=== PATIENT | male | born 1945 | race Caucasian/White ===

== ENCOUNTER 2022-11-19 04:46 | Emergency (ER) | payer OTHER ==
[2022-11-19 07:32] LABS: Specific Gravity 1.021 (1.005-1.030); Urine Bacteria 20-50 /HPF (<20); Urine Bilirubin NEGATIVE (Negative); Urine Blood 1+ (Negative); Urine Clarity Extremely Turbid (Clear); Urine Color Yellow (Yellow); Urine Glucose NEGATIVE (Negative); Urine Mucus Slight /HPF (None Seen); Urine Protein 1+ (Negative); Urine RBC >50 /HPF (None Seen); Urine Urobilinogen 1+ (Normal); Urine pH 7.5 (5.0-7.0)
[2022-11-19 08:40] LABS: Absolute Lymphocytes (CBC) 1.4 K/uL (0.7-4.9); Lymphocytes % 23.7 % (15.3-44.8); MCV 85.2 fL (80-100); Platelets 191 thou/uL (152-406); RBC Red Blood Cell Count 4.11 M/uL (4.33-5.43)
[2022-11-19 08:41] LABS: Protime INR 1.05
[2022-11-19 08:52] LABS: Albumin 3.1 g/dL (3.4-5.0); Bilirubin Total 0.2 mg/dL (0.2-1.0); Potassium 3.6 mEq/L (3.5-5.1)
--- NOTE | 2022-11-19 09:00 | ER ---
Nurse's Notes [facility] Name: Aly Jimenez Age: 77 yrs Sex: Male : 1945 Arrival Date: 11/19/2022 Time: 04:46 Bed 17 Private MD: Diagnosis: UTI/ Urinary tract infection, site not specified Presentation: 11/19 04:48 Chief complaint: EMS states: called out to [facility] due to pt being "aggressive jw7 towards and swinging at staff". Coronavirus screen: At this time, the client does not indicate any symptoms associated with coronavirus-19. Ebola Screen: No symptoms or risks identified at this time. Initial Sepsis Screen: Does the patient meet any 2 criteria? No. Patient's initial sepsis screen is negative. Does the patient have a suspected source of infection? No. Patient's initial sepsis screen is negative. Risk Assessment: Do you want to hurt yourself or someone else? Patient reports no desire to harm self or others. Onset of symptoms was November 19, 2022. 04:48 Method Of Arrival: EMS: [facility] jw7 04:48 Acuity: PRANEETH 4 jw7 Triage Assessment: 04:48 General: Appears in no apparent distress. comfortable, Behavior is calm, cooperative. jw7 Pain: Denies pain. EENT: No deficits noted. No signs and/or symptoms were reported regarding the EENT system. Neuro: No deficits noted. Rossi Agitation-Sedation Scale (RASS): 0 - Alert and Calm Level of Consciousness is awake, alert, obeys commands, confused, Oriented to person, place, Speech is normal. Cardiovascular: No deficits noted. Capillary refill < 3 seconds Clubbing of nail beds is absent JVD is absent Patient's skin is warm and dry. Respiratory: No deficits noted. Airway is patent Trachea midline Respiratory effort is even, unlabored, Respiratory pattern is regular, symmetrical. GI: No deficits noted. No signs and/or symptoms were reported involving the gastrointestinal system. Abdomen is round non-distended. : No deficits noted. No signs and/or symptoms were reported regarding the genitourinary system. Derm: No deficits noted. No signs and/or symptoms reported regarding the dermatologic system. Skin is intact, is healthy with good turgor, Skin is dry, Skin is normal, Skin temperature is warm. Musculoskeletal: No deficits noted. No signs and/or symptoms reported regarding the musculoskeletal system. Circulation, motion, and sensation intact. Range of motion: intact in all extremities. Historical: - Allergies: 05:00 Sulfa (Sulfonamide Antibiotics); jw7 - Home Meds: 05:00 Unable to obtain [Active]; jw7 - PMHx: 05:00 Hypertensive disorder; Diabetes mellitus; ankylosing spondilytis; BPH; HLD; jw7 05:00 Hypothyroidism; jw7 - PSHx: 05:00 Unable to Obtain; jw7 - Immunization history:: Adult Immunizations unknown, unknown Last tetanus immunization: unknown, Flu vaccine status is unknown. - Social history:: Smoking status: Patient denies any tobacco usage or history of. Screenin:52 [facility] ED Fall Risk Assessment (Adult) History of falling in the last 3 months, jw7 including since admission No falls in past 3 months (0 pts) Confusion or Disorientation Yes (5 pts) Intoxicated or Sedated No (0 pts) Impaired Gait Yes (1 pt) Mobility Assist Device Used No (0 pt) Altered Elimination No (0 pt) Score/Fall Risk Level 3 or more points = High Risk Oriented to surroundings, Maintained a safe environment, Educated pt \\T\\ family on fall prevention, incl call for assistance when getting out of bed, Hourly rounding (assess needs \\T\\ fall precautionary measures) done. Abuse screen: Denies threats or abuse. Denies injuries from another. Nutritional screening: No deficits noted. Tuberculosis screening: No symptoms or risk factors identified. Assessment: 05:15 General: see triage assessment. jw7 06:20 Reassessment: Patient appears in no apparent distress at this time. No changes from jw7 previously documented assessment. Patient and/or family updated on plan of care and expected duration. Pain level reassessed. Patient is alert, oriented x 3, equal unlabored respirations, skin warm/dry/pink. 08:30 Reassessment: Patient appears in no apparent distress at this time. Patient and/or ph family updated on plan of care and expected duration. Pain level reassessed. Pt asleep w/ unlabored respirations, awakens easily and was cooperative w/ blood draw and EKG. 10:29 Reassessment: Patient appears in no apparent distress at this time. Patient and/or ph family updated on plan of care and expected duration. Pain level reassessed. Pt d/c w/ care home staff. Vital Signs: 04:48 BP 138 / 72; Pulse 76; Resp 16 S; Pulse Ox 100% on R/A; jw7 05:30 BP 128 / 66; Pulse 75; Resp 16 S; Pulse Ox 100% on R/A; jw7 06:00 BP 130 / 81; Pulse 64; Resp 17 S; Pulse Ox 99% on R/A; jw7 07:30 BP 129 / 78; Pulse 62; Resp 18; Pulse Ox 98% on R/A; ph 09:00 BP 133 / 67; Pulse 68; Resp 18; Pulse Ox 99% on R/A; ph 10:30 BP 138 / 78; Pulse 71; Resp 18; Temp 97.6; Pulse Ox 100% on R/A; ph ED Course: 04:47 Patient arrived in ED. as6 04:48 Isadora Lama RN is Primary Nurse. jw7 04:48 Arm band placed on. jw7 04:51 Triage completed. jw7 04:52 Patient has correct armband on for positive identification. Bed in low position. Call jw7 light in reach. Side rails up X2. 05:16 Noman Donohue MD is Attending Physician. kdr 07:41 Attending Physician role handed off by Noman Donohue MD rn 07:41 Max Crawley MD is Attending Physician. rn 08:22 Inserted saline lock: 22 gauge in right hand, using aseptic technique. aw1 08:30 EKG done, by ED staff. aw1 09:53 IV discontinued, intact, bleeding controlled, No redness/swelling at site. Pressure aw1 dressing applied. 10:30 No provider procedures requiring assistance completed. ph 10:31 IV discontinued, intact, bleeding controlled, No redness/swelling at site. Pressure ph dressing applied. Administered Medications: 09:24 Drug: Rocephin IV 1 grams IV at calculated rate once; Given slow IV push per pharmacy ph instructions Route: IV; Rate: calculated rate; Site: right hand; 09:45 Follow up: Response: No adverse reaction; IV Status: Completed infusion ph Medication: 10:30 VIS not applicable for this client. ph Outcome: 09:00 Discharge ordered by . rn 10:31 Discharged to care home. Report called to Soledad ceron 10:31 Condition: good 10:31 Discharge instructions given to care home, Instructed on discharge instructions, follow up and referral plans. medication usage, Demonstrated understanding of instructions, follow-up care, medications, Prescriptions given X 1, 10:31 Patient left the ED. ph Signatures: Noman Donohue MD MD kdr Nieto, Roman, MD MD rn Hall, Patricia, RN RN Shashank Valle RN RN as6 Isadora Lama RN RN jw7 Therese Piedra aw1 Corrections: (The following items were deleted from the chart) 05:15 04:54 Home Meds: Effexor 150 Oral 150 mg twice a day; jw7 jw7 05:15 04:54 Home Meds: Aricept 5 mg Oral tablet 1 tab Q AM; jw7 jw7 05:15 04:54 Home Meds: Zyprexa 2.5 mg Oral tablet 1 tab Q AM; jw7 jw7 05:15 04:54 Home Meds: Zyprexa 7.5 mg Oral tablet 1 tab Q HS; jw7 jw7 05:15 04:54 Home Meds: Depakote 250 mg Oral tablet, delayed release (enteric coated) 1 tab Q jw7 AM and Q 1400; jw7 05:15 04:54 Home Meds: Depakote 500 mg Oral tablet, delayed release (enteric coated) 1 tab Q jw7 HS; jw7 05:15 04:54 Home Meds: trazodone 100 mg Oral tablet 1 tab every day at bedtime; jw7 jw7 05:23 04:48 Neuro: No deficits noted. Rossi Agitation-Sedation Scale (RASS): 0 - Alert and jw7 Calm jw7
--- NOTE | 2022-11-19 09:00 | EDPHYS ---
Physician Documentation [facility] Name: Aly Jimenez Age: 77 yrs Sex: Male : 1945 Arrival Date: 11/19/2022 Time: 04:46 Bed 17 Private MD: ED Physician Max Crawley HPI: 11/19 05:37 This 77 yrs old Male presents to ER via EMS with complaints of agitation. kdr 05:37 Nursing staff reports that [facility] behavior. Reportedly he was swinging at the nursing staff. PD was called. When they arrived the patient apparently was without any concern from their perspective. EMS arrived shortly thereafter and the [facility] staff reportedly wanted the patient evaluated for psychiatric issues. On my initial evaluation patient is sleeping but arouses and is cooperative. He does not appear agitated in any way.. Onset: The symptoms/episode began/occurred just prior to arrival. Severity of symptoms: At their worst the symptoms were mild moderate just prior to arrival, in the emergency department the symptoms have resolved. It is unknown whether or not the patient has had similar symptoms in the past. The patient was reported to have had a psychiatric evaluation a few weeks ago. The outcome of that was not known. Patient does appear to have some baseline dementia. Historical: - Allergies: 05:00 Sulfa (Sulfonamide Antibiotics); jw7 - Home Meds: 05:00 Unable to obtain [Active]; jw7 - PMHx: 05:00 Hypertensive disorder; Diabetes mellitus; ankylosing spondilytis; BPH; HLD; jw7 05:00 Hypothyroidism; jw7 - PSHx: 05:00 Unable to Obtain; jw7 - Immunization history:: Adult Immunizations unknown, unknown Last tetanus immunization: unknown, Flu vaccine status is unknown. - Social history:: Smoking status: Patient denies any tobacco usage or history of. ROS: 05:37 Constitutional: Negative for fever, chills, and weight loss, Eyes: Negative for injury, kdr pain, redness, and discharge, Cardiovascular: Negative for chest pain, palpitations, and edema, Respiratory: Negative for shortness of breath, cough, wheezing, and pleuritic chest pain, Abdomen/GI: Negative for abdominal pain, nausea, vomiting, diarrhea, and constipation, Skin: Negative for injury, rash, and discoloration, 05:37 Neuro: Negative for headache, numbness, weakness, 05:37 Psych: Negative for auditory hallucinations, visual hallucinations, homicidal ideation, suicidal ideation, Exam: 05:37 Constitutional: This is a well developed, well nourished patient who is awake, alert, kdr and in no acute distress. Chest/axilla: Normal chest wall appearance and motion. Nontender with no deformity. No lesions are appreciated. Cardiovascular: Regular rate and rhythm with a normal S1 and S2. No gallops, murmurs, or rubs. Normal PMI, no JVD. No pulse deficits. Respiratory: Lungs have equal breath sounds bilaterally, clear to auscultation and percussion. No rales, rhonchi or wheezes noted. No increased work of breathing, no retractions or nasal flaring. Abdomen/GI: Soft, non-tender, with normal bowel sounds. No distension or tympany. No guarding or rebound. No evidence of tenderness throughout. Back: No spinal tenderness. No costovertebral tenderness. Full range of motion. Skin: Warm, dry with normal turgor. Normal color with no rashes, no lesions, and no evidence of cellulitis. MS/ Extremity: Pulses equal, no cyanosis. Neurovascular intact. Full, normal range of motion. 05:37 Neuro: Orientation: to person, place, Not oriented to time, situation, Mentation: responsive to voice able to follow commands, confused, sleepy, 05:37 Psych: Behavior/mood is pleasant, cooperative, 08:35 ECG was reviewed by the Attending Physician. rn Vital Signs: 04:48 BP 138 / 72; Pulse 76; Resp 16 S; Pulse Ox 100% on R/A; jw7 05:30 BP 128 / 66; Pulse 75; Resp 16 S; Pulse Ox 100% on R/A; jw7 06:00 BP 130 / 81; Pulse 64; Resp 17 S; Pulse Ox 99% on R/A; jw7 07:30 BP 129 / 78; Pulse 62; Resp 18; Pulse Ox 98% on R/A; ph 09:00 BP 133 / 67; Pulse 68; Resp 18; Pulse Ox 99% on R/A; ph 10:30 BP 138 / 78; Pulse 71; Resp 18; Temp 97.6; Pulse Ox 100% on R/A; ph MDM: 05:37 Data reviewed: vital signs, nurses notes, lab test result(s). kdr 07:41 Patient medically screened. rn 07:51 Differential Diagnosis altered mental status. Counseling: I had a detailed discussion rn with the patient and/or guardian regarding the historical points, exam findings, and any diagnostic results supporting the discharge/admit diagnosis. ED course: Patient signed out to me by Dr. Donohue. Plan was to obtain urine. Nursing report states [facility] at [facility]. Patient with baseline dementia. 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 Patient not oriented to place or time and cannot give much more of a story.. 08:58 Consideration of Admission/Observation Escalation of care including furniture rental consultant/observation considered. Labs unremarkable, WBC normal, lactate normal, normal vitals, will [facility] with [facility] after IV antibiotics here. Care significantly affected by the following chronic conditions: Dementia. Special discussion: I discussed with the patient/guardian in detail that at this point there is no indication for admission to the hospital. It is understood, however, that if the symptoms persist or worsen the patient needs to return immediately for re-evaluation. 09:00 ED course: Patient has not shown any agitation here, calm and answering all questions. rn Following commands. Does not appear to be delirious, only baseline dementia. No indication for emergent admission at this point. Will give IV antibiotics and [facility] to [facility] with [facility].. 11/19 05:20 Order name: Urinalysis w/ reflexes; Complete Time: 07:41 kdr 11/19 07:39 Order name: Urine Culture EDVT 11/19 07:45 Order name: Blood Culture Adult (2) rn 11/19 07:45 Order name: CBC with Diff; Complete Time: 08:58 rn 11/19 07:45 Order name: CMP; Complete Time: 08:58 rn 11/19 07:45 Order name: Lactate w/ 2H reflex if indic.; Complete Time: 08:58 rn 11/19 07:45 Order name: Protime (+inr); Complete Time: 08:58 rn 11/19 07:45 Order name: Ptt, Activated; Complete Time: 08:58 rn 11/19 07:04 Order name: Diet Regular; Complete Time: 07:05 jw7 11/19 07:45 Order name: EKG; Complete Time: 07:45 rn 11/19 07:45 Order name: Accucheck; Complete Time: 08:50 rn 11/19 07:45 Order name: Cardiac monitoring; Complete Time: 08:50 rn 11/19 07:45 Order name: EKG - Nurse/Tech; Complete Time: 08:33 rn 11/19 07:45 Order name: IV Saline Lock - Large Bore; Complete Time: 08:35 rn 11/19 07:45 Order name: Labs collected and sent; Complete Time: 08:35 rn 11/19 07:45 Order name: O2 Per Protocol; Complete Time: 08:50 rn 11/19 07:45 Order name: O2 Sat Monitoring; Complete Time: 08:51 rn 11/19 07:45 Order name: Vital Signs; Complete Time: 08:51 rn EC:35 Rate is 67 beats/min. Rhythm is regular. QRS [place] is Normal. HI interval is normal. QRS rn interval is normal. QT interval is normal. No Q waves. T waves are Normal. No ST changes noted. Clinical impression: NSR w/ Non-specific ST/T Changes. Interpreted by me. Reviewed by me. Administered Medications: 09:24 Drug: Rocephin IV 1 grams IV at calculated rate once; Given slow IV push per pharmacy ph instructions Route: IV; Rate: calculated rate; Site: right hand; 09:45 Follow up: Response: No adverse reaction; IV Status: Completed infusion ph Disposition Summary: 11/19/22 09:00 Discharge Ordered Notes: Location: Home rn Problem: new rn Symptoms: have improved rn Condition: Stable rn Diagnosis - UTI/ Urinary tract infection, site not specified rn Followup: rn - With: Private Physician - When: As needed - Reason: Recheck today's complaints, Re-evaluation by your physician Discharge Instructions: - Discharge Summary Sheet rn - Urinary Tract Infection, Adult rn Forms: - Medication Reconciliation Form rn - Thank You Letter rn - Antibiotic hand ornament maker - Prescription Opioid Use rn - Patient Portal Instructions rn - Leadership Thank You Letter rn Prescriptions: - cefpodoxime 100 mg Oral Tablet - take 2 tablets ORAL route every 12 hours for 10 days take with food; 40 tablet; rn Refills: 0, Product Selection Permitted Signatures: Dispatcher [employer] Noman Cantu MD MD kdr Nieto, Roman, MD MD rn Hall, Patricia, RN RN ph Waits, Jodi RN RN jw7 Corrections: (The following items were deleted from the chart) 05:15 04:54 Home Meds: Effexor 150 Oral 150 mg twice a day; jw7 jw7 05:15 04:54 Home Meds: Aricept 5 mg Oral tablet 1 tab Q AM; jw7 jw7 05:15 04:54 Home Meds: Zyprexa 2.5 mg Oral tablet 1 tab Q AM; jw7 jw7 05:15 04:54 Home Meds: Zyprexa 7.5 mg Oral tablet 1 tab Q HS; jw7 7 05:15 04:54 Home Meds: Depakote 250 mg Oral tablet, delayed release (enteric coated) 1 tab Q jw7 AM and Q 1400; jw7 05:15 04:54 Home Meds: Depakote 500 mg Oral tablet, delayed release (enteric coated) 1 tab Q jw7 HS; jw7 05:15 04:54 Home Meds: trazodone 100 mg Oral tablet 1 tab every day at bedtime; jw7 jw7
[2022-11-19] MEDS ORDERED: CEFTRIAXONE 1000 MG/VIAL ONE (10:57)
[2022-11-19] MEDS ORDERED: NA CHLORIDE 0.9% 50 ML ONE (10:57)
[2022-11-19 10:59] VITALS: BP 138/78; TEMP 97.6; O2SAT 100
--- NOTE | 2022-11-22 12:39 | EKG ---
Test Date: 2022-11-19 Test Time: 08:30:16 Revenue Research Analyst: KENRICK MEASUREMENT RESULTS: Intervals: Rate: 67 VA: 152 QRSD: 148 QT: 418 QTc: 441 [place]: P: 80 VA: 152 QRS: 30 T: 43 INTERPRETIVE STATEMENTS: Normal sinus rhythm Right bundle branch block Abnormal ECG No previous ECG available for comparison Electronically Signed On 11-22-22 12:33:05 CDT by Rohan Chowdhury
== END 2022-11-19 10:31 | disposition home or self-care (01) ==
LOC: ER 04:46
DX: N39.0 Urinary tract infection, site not specified (principal); E11.9 Type 2 diabetes mellitus without complications; I10 Essential (primary) hypertension; Z88.2 Allergy status to sulfonamides
CPT/HCPCS: 96365; 87040 ×2; 87088; 85025; 81001; 87086; 36415; 85610; 83605; 85730; 87077; 87186; 80053; 99284; J0696; 93005

== ENCOUNTER 2024-03-09 12:43 | Emergency (ER) | payer OTHER ==
[2024-03-09 13:40] LABS: Absolute Lymphocytes (CBC) 1.5 K/uL (0.7-4.9); Absolute Monocytes 0.8 K/uL (0.1-1.3); Absolute Neutrophil 5.7 K/uL (1.8-8.0); Basophils % 0.6 % (0-1.3); Eosinophils % 0.6 % (0-4.4); Hematocrit 33.2 % (39.6-49.0); Hemoglobin 11.2 g/dL (13.6-17.9); Lymphocytes % 18.4 % (15.3-44.8); MCH 28.8 pg (27.0-35.0); MCHC 33.8 g/dL (32.0-36.0); MCV 85.2 fL (80-100); MPV 7.6 fL (7.6-11.3); Monocytes % 9.7 % (3.3-12.3); Neutrophils % 70.7 % (41.7-73.7); Platelets 238 thou/uL (152-406); RBC Red Blood Cell Count 3.89 M/uL (4.33-5.43); Red Cell Distribution Width 15.3 % (12.1-15.2)
[2024-03-09 13:52] LABS: Anion Gap 5.1 mEq/L (5.0-15.0); Potassium 4.1 mEq/L (3.5-5.1)
--- NOTE | 2024-03-09 15:15 | RAD REPORT ---
EXAMINATION: XR Femur Right CLINICAL INDICATION: Male, 79 years old. PAIN RIGHT TECHNIQUE: 2 view radiograph of the right femur were obtained. COMPARISON: No prior exam. FINDINGS: No evidence of fracture or dislocation allowing for suboptimal positioning. Normal alignmen t. Periosteal organized reaction and mild cortical deformity along the mid shaft femur, may relate to sequelae of a remote fracture. Moderate right hip degenerative changes. Soft tissues are unremarka ble. IMPRESSION: No acute osseous abnormalities. Chronic findings as above.
--- NOTE | 2024-03-09 15:16 | RAD REPORT ---
EXAMINATION: XR PELVIS CLINICAL INDICATION: Male, 79 years old. [facility] MAIN PAIN Bed Name: 13 TECHNIQUE: AP Pelvis radiograph was obtained. COMPARISON: No prior exam. FINDINGS: No evidence of fracture or dislocation. Normal alignment. Moderate bilateral hip degenerati ve changes worse on the right. No evidence of AVN. Soft tissues are unremarkable. IMPRESSION: No acute osseous abnormalities. Degenerative changes as above..
--- NOTE | 2024-03-09 16:25 | RAD REPORT ---
EXAMINATION: CT RIGHT FEMUR WITHOUT CONTRAST CLINICAL INDICATION: Male, 79 years old.[facility] HIP pain RIGHT TECHNIQUE: CT right femur was performed, without IV contrast, as per department protocol. Axial, sagi ttal and coronal reconstructions were obtained. One or more of the following dose reduction techniques were used: Automated exposure control, adjustment of the mA and/or kV according to patient size, and/or iterative reconstruction. Unless otherwise specified, incidental findings do not require dedicated imaging follow-up. COMPARISON: Right femur radiographs of earlier the same day. FINDINGS: The lack of intravenous contrast limits the sensitivity of this exam for evaluation of solid visceral organs, vascular structures, and retroperitoneum. MUSCULOSKELETAL: No acute fracture or dislocation of the right femur or bony pelvis. At least moderat e right hip joint degenerative changes. Mild to moderate bilateral SI joint and severe degenerative changes. Sequelae of enthesopathy at the greater trochanter. URINARY BLADDER: No abnormalities of the included urinary bladder. BOWEL: Included small and large bowel is normal in caliber. No wall thickening or bowel inflammatory changes. LYMPH NODES: No lymphadenopathy. VISUALIZED VESSELS: Normal caliber. Intestinal mineralization of large to moderate sized vessels. ADDITIONAL FINDINGS: Surrounding soft tissues are unremarkable.. IMPRESSION: No acute abnormalities of the right proximal femur or bony pelvis. Evaluation limited by lack of IV c ontrast. Degenerative changes as above.
--- NOTE | 2024-03-09 16:32 | ER ---
Nurse's Notes [facility] Name: Aly Jimenez Age: 79 yrs Sex: Male : 1945 Arrival Date: 03/09/2024 Time: 12:43 Bed 13 Private MD: Diagnosis: Person with feared health complaint in whom no diagnosis is made Presentation: 03/09 12:56 Coronavirus screen: At this time, the client does not indicate any symptoms associated aa5 with coronavirus-19. Ebola Screen: Patient denies travel to an Ebola-affected area in the 21 days before illness onset. Initial Sepsis Screen: Does the patient meet any 2 criteria? No. Patient's initial sepsis screen is negative. Does the patient have a suspected source of infection? No. Patient's initial sepsis screen is negative. Risk Assessment: Do you want to hurt yourself or someone else? Unable to obtain. Onset of symptoms was March 09, 2024. Transition of care: patient was received from another setting of care (long-term care facility), [facility]. 12:56 Acuity: PRANEETH 3 aa5 12:56 Method Of Arrival: EMS: [facility] aa5 12:56 Chief complaint: EMS states: sent here for Right hip fx, unknown mechanism of injury. aa5 EMS reports [facility] staff reported pt was noted to be not able to ambulate like normal and reported pt seemed "stiff for a couple of days". 12:56 Care prior to arrival: Glucose check: 150. aa5 Historical: - Allergies: 12:56 Sulfa (Sulfonamide Antibiotics); aa5 12:56 PENICILLINS; aa5 - PMHx: 12:56 Alzheimer's disease; ankylosing spondilytis; BPH; Dementia; diabetes mellitus; HLD; aa5 Hypertensive disorder; Hypothyroidism; UTI; Hypothyroidism; Protein calorie malnutrition; GERD; - Immunization history:: Adult Immunizations unknown. - Infectious Disease History:: unknown . - Social history:: Smoking status: unknown. Screenin:00 [facility] ED Fall Risk Assessment (Adult) History of falling in the last 3 months, aa5 including since admission No falls in past 3 months (0 pts) Confusion or Disorientation Yes (5 pts) Intoxicated or Sedated No (0 pts) Impaired Gait Yes (1 pt) Mobility Assist Device Used Yes (1 pt) Altered Elimination Yes (1 pt) Score/Fall Risk Level 3 or more points = High Risk Oriented to surroundings, Maintained a safe environment, Educated pt \\T\\ family on fall prevention, incl call for assistance when getting out of bed. Abuse screen: No signs of abuse noted. Nutritional screening: Dx protein malnutrition. Tuberculosis screening: No symptoms or risk factors identified. Assessment: 12:56 General: Appears comfortable, Behavior is calm, cooperative. Pain: Complains of pain in aa5 right hip Unable to use pain scale. FLACC scale score is 0 out of 10. Neuro: Level of Consciousness is awake, alert, obeys commands, Oriented to person, Pt's baseline is A\\T\\O x person only. . Cardiovascular: Patient's skin is warm and dry. Respiratory: Airway is patent Respiratory effort is even, unlabored, Respiratory pattern is regular, symmetrical. GI: Abdomen is non-distended, Abd is soft and non tender X 4 quads. : No signs and/or symptoms were reported regarding the genitourinary system. brief noted. EENT: No signs and/or symptoms were reported regarding the EENT system. Derm: Skin is pink, warm \\T\\ dry. Musculoskeletal: right hip fx reported. 13:34 Reassessment: x-ray at bedside . aa5 14:30 Neuro: Level of Consciousness is awake, alert, obeys commands, Oriented to person. aa5 Respiratory: Airway is patent Respiratory effort is even, unlabored, Respiratory pattern is regular, symmetrical. Derm: Skin is pink, warm \\T\\ dry. 16:49 Reassessment: Report given to nurse Ga at [facility], transportation will be aa5 arranged by assisted. . 17:35 Reassessment: Pt cleaned of urinary incontinence, clean brief applied. . aa5 17:35 Neuro: Level of Consciousness is awake, alert, obeys commands, Oriented to person. aa5 Respiratory: Airway is patent Respiratory effort is even, unlabored, Respiratory pattern is regular, symmetrical. Derm: Skin is pink, warm \\T\\ dry. Vital Signs: 12:56 BP 142 / 82; Pulse 68; Resp 18 S; Temp 97.5(TE); Pulse Ox 100% on R/A; aa5 13:00 BP 142 / 82; Pulse 72; Resp 18 S; Pulse Ox 100% on R/A; aa5 14:00 BP 130 / 77; Pulse 68; Resp 16 S; Pulse Ox 98% on R/A; aa5 15:00 BP 156 / 94; Pulse 89; Resp 16 S; Pulse Ox 99% on R/A; aa5 16:00 BP 125 / 71; Pulse 70; Resp 16 S; Pulse Ox 98% on R/A; aa5 17:00 BP 129 / 84; Pulse 79; Resp 18 S; Temp 97.8(TE); Pulse Ox 98% on R/A; aa5 ED Course: 12:56 Patient arrived in ED. aa5 12:56 Arm band placed on Patient placed in an exam room, on a stretcher. aa5 12:56 Patient has correct armband on for positive identification. Placed in gown. Bed in low aa5 position. Call light in reach. Side rails up X2. Pulse ox on. NIBP on. 12:57 [facility]aw[facility] Duran [facility]C [facility]. kb 12:57 Freddie Costa MD is Attending Physician. kb 12:59 Michell Connor, RN is Primary Nurse. aa5 13:20 Triage completed. aa5 13:31 Initial lab(s) drawn, by me, sent to lab. Inserted saline lock: 20 gauge in left aa5 forearm, using aseptic technique. Blood collected. Flushed with 10 mL NS. 14:13 Femur Right XRAY In Process Unspecified. EDMS 14:14 Pelvis XRAY In Process Unspecified. EDMS 15:48 Lower Ext Wo Con W/ Mpr In Process Unspecified. EDMS 17:35 IV discontinued, intact, bleeding controlled, No redness/swelling at site. Pressure aa5 dressing applied. 17:35 No provider procedures requiring assistance completed. aa5 Administered Medications: No medications were administered Medication: 13:58 VIS not applicable for this client. aa5 Outcome: 16:32 Discharge ordered by . kb 17:45 Discharged to assisted. Report called to Sury. aa5 17:45 Condition: stable 17:45 Discharge instructions given to Pt's assisted nurse and [facility] ambulance EMS. Instructed on discharge instructions, follow up and referral plans. Demonstrated understanding of instructions, follow-up care, 17:46 Patient left the ED. aa5 Signatures: Dispatcher [employer] EDMS Tawana Duran FNP-C FNP-Ckb Calderon, Michell, RN RN aa5
--- NOTE | 2024-03-09 16:32 | EDPHYS ---
Physician Documentation [facility] Name: Aly Jimenez Age: 79 yrs Sex: Male : 1945 Arrival Date: 03/09/2024 Time: 12:43 Bed 13 Private MD: ED Physician Freddie Costa HPI: 03/09 13:10 This 79 yrs old Male presents to ER via Unassigned with complaints of R hip fx. kb 13:10 Pt is a 79 year old male who presents for right hip fracture. detention staff kb noticed pt was acting stiff for the last 2 days and not getting up and walking like he normally does so they did an xray today and it revealed a hip fracture. They are not sure how it occurred. Pt has a history of dementia, is normally oriented x1 and is at baseline. . Historical: - Allergies: 12:56 Sulfa (Sulfonamide Antibiotics); aa5 12:56 PENICILLINS; aa5 - PMHx: 12:56 Alzheimer's disease; ankylosing spondilytis; BPH; Dementia; diabetes mellitus; HLD; aa5 Hypertensive disorder; Hypothyroidism; UTI; Hypothyroidism; Protein calorie malnutrition; GERD; - Immunization history:: Adult Immunizations unknown. - Infectious Disease History:: unknown . - Social history:: Smoking status: unknown. ROS: 13:10 Constitutional: As per HPI kb Exam: 13:10 Constitutional: This is a well developed, well nourished patient who is awake, alert, kb and in no acute distress. Head/Face: Normocephalic, atraumatic. ENT: Moist Mucous membranes Cardiovascular: Regular rate Respiratory: Respirations even and unlabored. No increased work of breathing. Talking in full sentences Skin: Warm, dry with normal turgor. Normal color. 13:10 Neuro: Exam negative for acute changes, Vital Signs: 12:56 BP 142 / 82; Pulse 68; Resp 18 S; Temp 97.5(TE); Pulse Ox 100% on R/A; aa5 13:00 BP 142 / 82; Pulse 72; Resp 18 S; Pulse Ox 100% on R/A; aa5 14:00 BP 130 / 77; Pulse 68; Resp 16 S; Pulse Ox 98% on R/A; aa5 15:00 BP 156 / 94; Pulse 89; Resp 16 S; Pulse Ox 99% on R/A; aa5 16:00 BP 125 / 71; Pulse 70; Resp 16 S; Pulse Ox 98% on R/A; aa5 17:00 BP 129 / 84; Pulse 79; Resp 18 S; Temp 97.8(TE); Pulse Ox 98% on R/A; aa5 MDM: 12:57 Medical Screening Exam initiated kb 13:10 Differential diagnosis: fracture, contusion. Data reviewed: vital signs, nurses notes. kb 16:32 Counseling: I had a detailed discussion with the patient and/or guardian regarding the kb historical points, exam findings, and any diagnostic results supporting the discharge/admit diagnosis, lab results, radiology results, the need for outpatient follow up, a family practitioner, to return to the emergency department if symptoms worsen or persist or if there are any questions or concerns that arise at home. 03/09 13:00 Order name: CBC with Diff; Complete Time: 13:42 kb 03/09 13:00 Order name: BMP; Complete Time: 14:06 kb 03/09 13:00 Order name: Femur Right XRAY; Complete Time: 15:17 kb 03/09 13:00 Order name: Pelvis XRAY; Complete Time: 15:17 kb 03/09 15:35 Order name: Lower Ext Wo Con W/ Mpr; Complete Time: 16:30 EDMS 03/09 13:00 Order name: IV Start; Complete Time: 13:33 kb Administered Medications: No medications were administered Disposition Summary: 03/09/24 16:32 Discharge Ordered Notes: Location: Home kb Condition: Stable kb Diagnosis - Person with feared health complaint in whom no diagnosis is made kb Followup: kb - With: Emergency Department - When: As needed - Reason: Worsening of condition Followup: kb - With: Private Physician - When: 2 - 3 days - Reason: Recheck today's complaints, Continuance of care, Re-evaluation by your physician Discharge Instructions: - Discharge Summary Sheet aa5 Forms: - Medication Reconciliation Form kb - Antibiotic Education kb - Prescription Opioid Use kb - Patient Portal Instructions kb - Leadership Thank You Letter kb - SBAR form aa5 Signatures: Dispatcher [employer] EDTawana Bingham, TEO CABRAL-Michell Ibarra, RN RN aa5 Corrections: (The following items were deleted from the chart) 15:35 15:24 CT RIGHT HIP WO CONTRAST ordered. EDMS EDMS
[2024-03-09 18:25] VITALS: BP 142/82; TEMP 97.5; O2SAT 100
== END 2024-03-09 17:46 | disposition home or self-care (01) ==
LOC: ER 12:43
DX: Z71.1 Person with feared health complaint in whom no diagnosis is made (principal)
CPT/HCPCS: 36415; 72170; 73700; 76377; 80048; 85025; 99284